=== PATIENT | female | born 1985 | race Caucasian/White ===

== ENCOUNTER 2016-07-27 15:36 | Emergency (ER) | payer BC, OTHER ==
[~2016-07-27] VITALS: Ht 175.3 cm; Wt 112.2 kg
[~2016-07-27 15:36] MED LIST: DOXY-300 PO
[2016-07-27 15:43] VITALS: TEMP 36.8; Ht 175.3 cm; Wt 112.2 kg
[2016-07-27] MEDS ORDERED: SODIUM CHLORIDE 0.9% 1000ML 1,000 ML IV STA (16:27)
[2016-07-27] MEDS ORDERED: LORAZEPAM 2 MG/ML 1 ML VIAL IV STA (16:27)
[2016-07-27 17:05] LABS: URINE APPEARANCE CLEAR (CLEAR); URINE BILIRUBIN NEG (NEG); URINE COLOR YELLOW; URINE NITRITE NEG (NEG); URINE SPECIFIC GRAVITY 1.025 (1.000-1.030); UROBILINOGEN NEG (NEG)
[2016-07-27 17:08] LABS: MANUAL MICROSCOPIC REQUIRED? NO; REVIEW REQ? NO
[2016-07-27 17:09] LABS: BASO % 0.1 %; BASO ABS # 0.01 K/uL (0-0.2); COMPLETE YES; EOS % 0.8 %; HEMATOCRIT 39.9 % (37-47); IG% 0.1 %; LYMPH % 24.9 %; LYMPH ABS # 1.79 K/uL (1.2-3.4); MEAN CELL VOLUME 90.3 fL (80-100); MEAN CORPUSCULAR HGB CONC 34.3 g/dl (32-36); MEAN PLATELET VOLUME 9.8 fL (7.4-10.4); MONO % 6.1 %; PLATELET COUNT 237 K/uL (130-400); RED BLOOD COUNT 4.42 M/uL (4.2-5.4); WHITE BLOOD COUNT 7.19 K/uL (4.8-10.8)
[2016-07-27 17:26] LABS: CALCIUM 8.9 mg/dl (8.5-10.1); CREATININE 0.84 mg/dl (0.60-1.20); POTASSIUM 3.7 mmol/L (3.5-5.1)
[2016-07-27 17:30] LABS: CKMB/CK RATIO 0.7 (0-3.0)
[2016-07-27 18:15] VITALS: BP 139/95; PULSE 70; O2SAT 98
--- NOTE | 2016-07-28 00:06 | EMERGENCY ROOM VISIT NOTE ---
ED Visit Note First contact with patient: 16:02 Chief Complaint: I was shocked with an electrical outlet. History of Present Illness: Ms. Wright is a 31-year-old white female who is brought into the ED via wheelchair with complaints in the shocked when she was plugging a soup warmer into an outlet approximately 8 hours ago. The initial contact was on her left hand. Patient reports at the time of the incident she was stunned but had no loss of consciousness and throughout the day at work she reports she's been having difficulty concentrating on work, sensations when she moves her eyes her vision is lagging, disperse muscle numbness sensations predominantly in the upper extremities but throughout the body and intermittent facial flushing. Currently she has no additional symptoms and denies any ale pain. She has not taken any medications for her symptoms. She has not identified any aggravating or alleviating factors related to the pain. She denies headaches, dizziness, lightheadedness, hearing changes, difficulty speaking, difficulty swallowing, difficulty ambulating/coordinating body movements, chest pain, palpitations, shortness of breath, abdominal pain, nausea , vomiting, extremity weakness, back/flank pain Review of Systems: As noted above in history of present illness. All body systems were reviewed and found to be negative as noted above. Past Medical History: Unspecified stomach disorder, gallbladder disease, urinary symptoms, unspecified oral surgery. Current Medications: Patient denies. Allergies to Medications: Patient denies. Social History: Patient is currently employed; she feels safe in her home environment; she admits to tobacco and alcohol use. Physical Examination: Vital Signs: Date Time Temp Pulse Resp B/P Pulse Ox O2 Delivery O2 Flow Rate FiO2 07/27/16 18:15 70 18 139/95 98 07/27/16 16:34 82 07/27/16 15:43 36.8 80 16 146/101 100 GENERAL: 31-year-old female in no acute physical distress, nontoxic-appearing, afebrile and hemodynamically stable. Patient does appear slightly anxious. NEUROLOGICAL: Awake, alert and oriented to person, place and time. Answering questions appropriately and following commands. Normal gait. Good hand eye coordination. No focal motor sensory deficits. Cranial nerves II through XII grossly intact. Good short-term and long-term recall. Able to spell backwards. Able to draw the face of a clock. Romberg test negative. Pronator drift test negative. SKIN: Warm, dry and pink. No soft tissue eruptions or trauma noted. HEENT: Atraumatic and normocephalic. PERRLA. EOMI without nystagmus. Sclera white and conjunctiva pink. No drainage from naris. Oral cavity moist and pink. Pharynx is nonerythematous or edematous. Speech normal. No lymphadenopathy. Trachea midline. No jugular venous distention. No carotid bruits. BACK: No tenderness over the bony spine. No CVA tenderness. THORAX: Lungs sounds are clear to auscultation and equal bilaterally with symmetrical chest wall. No wheezing, rales or rhonchi. No crepitus, tenderness , subcutaneous air or deformities noted. HEART: Regular rate and rhythm. No gallops, rubs or murmurs are appreciated. ABDOMEN: Flat, soft and nontender. Positive bowel sounds in all quadrants. No guarding, rigidity or organomegaly. EXTREMITIES: Moves all extremities well on command and with purpose. All distal neurovascular statuses are intact and equal bilaterally. No calf tenderness or cords. 5/5 muscle strength in all movements of the upper extremity joints. ED Course: Patient is assessed as noted above. Laboratory Testing: Test 07/27/16 16:47 07/27/16 16:50 Range/Units Urine Color YELLOW Urine Appearance CLEAR CLEAR Urine pH 5.0 4.5-7.5 Urine Specific Murray 1.025 1.000-1.030 Urine Protein NEG NEG Urine Glucose (UA) NEG NEG Urine Ketones NEG NEG Urine Occult Blood NEG NEG Urine Nitrite NEG NEG Urine Bilirubin NEG NEG Urine Urobilinogen NEG NEG Urine Leukocyte Esterase NEG NEG White Blood Count 7.19 4.8-10.8 K/uL Red Blood Count 4.42 4.2-5.4 M/uL Hemoglobin 13.7 12.0-16.0 g/dL Hematocrit 39.9 37-47 % Mean Corpuscular Volume 90.3 80-100 fL Mean Corpuscular Hemoglobin 31.0 25-34 pg Mean Corpuscular Hemoglobin Concent 34.3 32-36 g/dl Platelet Count 237 130-400 K/uL Mean Platelet Volume 9.8 7.4-10.4 fL Neutrophils (%) (Auto) 68.0 % Lymphocytes (%) (Auto) 24.9 % Monocytes (%) (Auto) 6.1 % Eosinophils (%) (Auto) 0.8 % Basophils (%) (Auto) 0.1 % Neutrophils # (Auto) 4.88 1.4-6.5 K/uL Lymphocytes # (Auto) 1.79 1.2-3.4 K/uL Monocytes # (Auto) 0.44 0.11-0.59 K/uL Eosinophils # (Auto) 0.06 0-0.5 K/uL Basophils # (Auto) 0.01 0-0.2 K/uL RDW Standard Deviation 42.9 36.4-46.3 fL RDW Coefficient of Variation 13.1 11.5-14.5 % Immature Granulocyte % (Auto) 0.1 % Immature Granulocyte # (Auto) 0.01 0.00-0.02 K/uL Sodium Level 140 136-145 mmol/L Potassium Level 3.7 3.5-5.1 mmol/L Chloride Level 106 98-107 mmol/L Carbon Dioxide Level 27 21-32 mmol/L Anion Gap 7.0 3-11 mmol/L Blood Urea Nitrogen 14 7-18 mg/dl Creatinine 0.84 0.60-1.20 mg/dl Est Creatinine Clear Calc Drug Dose 129.6 ml/min Estimated GFR () 107.3 Estimated GFR (Non- 92.6 BUN/Creatinine Ratio 17.0 10-20 Random Glucose 99 70-99 mg/dl Calcium Level 8.9 8.5-10.1 mg/dl Total Creatine Kinase 124 26-192 U/L Creatine Kinase MB 0.9 0.5-3.6 ng/ml Creatine Kinase MB Ratio 0.7 0-3.0 EKG: Was read by myself and reviewed with Dr. Garcia; shows normal sinus rhythm with ventricular rate of 82 bpm. Low-voltage criteria. No axial deviation. Normal-appearing complexes and intervals. No ST changes indicating ischemia, injury or infarction. Patient was hydrated with normal saline and received 0.5 mg of Ativan IV for anxiety. Patient was reassessed multiple times during her stay in the emergency department. Patient's case was reviewed with Dr. Garcia; we agreed on diagnostic approach, treatment, disposition and plan. Patient was educated about tonight's findings and instructed on her treatment plan; she verbalizes understanding and agreement with this plan. Clinical Impression: Electrical shock. Disposition: Patient discharged home in stable condition; prior to departure she was reassessed and subjectively reported she was feeling better and had no additional symptoms. Plan: Patient was encouraged to use ibuprofen or acetaminophen as needed for mild aches or pains. Patient was encouraged to stay well-hydrated with increased clear fluids. Patient was encouraged to follow-up with Workmen's Compensation as needed for recheck. Patient was encouraged return the ED for severe pain, chest discomfort, heart racing, shortness of breath or any new/concerning symptoms.
== END 2016-07-27 18:16 | disposition home or self-care (01) ==
LOC: C.EDB 15:36 → C.EDA 18:16
DX: T75.4XXA Electrocution, initial encounter (principal); W86.8XXA Exposure to other electric current, initial encounter; F17.200 Nicotine dependence, unspecified, uncomplicated

== ENCOUNTER 2018-08-09 14:25 | Inpatient (IN) ==
[2018-08-09] MEDS ORDERED: MULTI-VITAMIN INFUSION 10 ML, THIAMINE HCL 100 MG, FOLIC ACID 1 MG in SODIUM CHLORIDE 0... IV STA (15:29)
[2018-08-09 15:35] LABS: Basophils # (auto) 0.01 K/uL (0-0.2); Basophils % (auto) 0.2 %; Eosinophils # (auto) 0.03 K/uL (0-0.5); Eosinophils % (auto) 0.5 %; Hematocrit (blood only) 38.9 % (37-47); Hemoglobin 13.3 g/dL (12.0-16.0); Immature Granulocytes # (auto) 0.01 K/uL (0.00-0.02); Immature Granulocytes % (auto) 0.2 %; Lymphocytes # (auto) 1.56 K/uL (1.2-3.4); Lymphocytes % (auto) 24.6 %; Mean Corpuscular Hgb Conc 34.2 g/dL (32-36); Mean Corpuscular Volume 98.2 fL (80-100); Mean Platelet Volume 9.1 fL (7.4-10.4); Monocytes # (auto) 0.25 K/uL (0.11-0.59); Monocytes % (auto) 3.9 %; Neutrophils # (auto) 4.48 K/uL (1.4-6.5); Neutrophils % (auto) 70.6 %; Platelet Count 200 K/uL (130-400); RDW Coefficient of Variation 14.1 % (11.5-14.5); RDW Standard Deviation 50.7 fL (36.4-46.3); Red Blood Count 3.96 M/uL (4.2-5.4); White Blood Count 6.34 K/uL (4.8-10.8)
[2018-08-09 15:38] LABS: Amphetamines+Metham, Urine Neg (Neg); Barbiturates, Urine Neg (Neg); Benzodiazepine, Urine Neg (Neg); Cocaine, Urine Neg (Neg); MDMA (Ecstacy), Urine Neg (Neg); Methadone, Urine Neg (Neg); Opiate, Urine Neg (Neg); Phencyclidine, Urine Neg (Neg)
[2018-08-09 15:55] LABS: Albumin Level 3.6 gm/dl (3.4-5.0); BUN Creatinine Ratio 16.6 (10-20); Calcium 8.2 mg/dl (8.5-10.1); Creatinine Clr Calc Pharmacy 133.6 ml/min; Est GFR (African American) 131.9; Est GFR (Non-African American) 113.8; Potassium 3.7 mmol/L (3.5-5.1)
[2018-08-09 16:06] LABS: Bilirubin,Total 0.6 mg/dl (0.2-1); Globulin 3.5 gm/dl (2.5-4.0); Total Protein 7.1 gm/dl (6.4-8.2)
[2018-08-09 16:11] LABS: Salicylate 2.6 mg/dl (2.8-20)
[2018-08-09 16:14] LABS: Acetaminophen < 2 ug/ml (10-30)
--- NOTE | 2018-08-09 16:39 | Emergency Department Note ---
Entered by Nathan Ye acting as a scribe for Houston Nguyen MD History of Present Illness General Chief complaint: Mental Health Evaluation Stated complaint: ANXIOUS, DEPRESSED Source: patient History of Present Illness Provider complaint: Wants detox Onset (ago): month(s) Location: left and right Maximum Pain Intensity: 0 Relieved By: + none Associated symptoms: + denies other symptoms (Suicidal ideations); no fever/chills and no nausea/vomiting Treatments prior to arrival: none The patient is a 33 year old female with a history of anxiety and depression who presents to the Emergency Room for alcohol detox/rehab. The patient states that she has been "self-medicating" with alcohol over the past 3-6 months adding that she drinks every day. She reports not currently being on any medications for her anxiety/depression. The patient notes that her last drink was approximately 12 hours ago. She adds that there is nothing in particular in her life that is making her depressed. She states that today she is seeking detox and eventual rehab treatment. The patient reports that she has never gone through detox before. She adds that she has never had a seizure before. She has had withdrawal symptoms in the past. The patient denies fevers, vomiting, and suicidal ideations. She also denies the chance of being . She also has a history of a past suicidal attempt (taking a full bottle of Benadryl) when she was much younger. She talked to her doctor who sent her here for detox. Home Medications Home Medications Medication Instructions Recorded Confirmed Type No Known Home Medications 08/09/18 08/09/18 History Allergies Allergy/AdvReac Type Severity Reaction Status Date / Time No Known Allergies Allergy Verified 08/09/18 15:24 Past Med/Surg History Medical History Anxiety Depression Suicide attempt Social History Preferred Language: Uruguayan Feels Safe at Home: Yes Smoking Status: Current every day smoker Review of Systems See HPI for pertinent positives & negatives. and A total of 10 systems reviewed and were otherwise negative Physical Exam Vital Signs Vital Signs - 24 hr 08/09/18 14:31 08/09/18 17:03 Temperature 36.8 C Temperature Source Oral Sepsis Recent Fever Within 48 Hours No Sepsis Action Taken by Nursing No Action Required Pulse Rate 98 H Pulse Rate [Right Finger] 72 Respiratory Rate 20 22 Respiratory Effort / Characteristics Spontaneous Blood Pressure 155/101 H Blood Pressure [Left Arm] 148/91 H Blood Pressure Mean 119 Blood Pressure Mean [Left Arm] 110 Blood Pressure Position [Left Arm] Sitting Pulse Oximetry 100 98 Oxygen Delivery Method Room Air Room Air Constitutional: Vital signs reviewed. Eyes: Pupils are equal round reactive to light. Conjunctiva are noninjected. ENT: Pharynx is clear without erythema or exudate. Mucous membranes are moist. Neck supple without meningeal signs. Respiratory: Clear to auscultation bilaterally. Breath sounds are equal bilaterally. Cardiovascular: Regular rate and rhythm. No rubs or gallops. GI: Soft, nondistended and nontender. Bowel sounds are present. Musculoskeletal: No peripheral edema. No lacerations to the wrists. Integumentary: No cyanosis. or jaundice. Neurological: The patient is awake and alert. No focal deficits. Mild tremor in the right hand. Psychiatric: Slightly anxious appearing. Course 1501: The patient was evaluated in room A08, and a complete history and physical examination were performed. 1602: I discussed test results with the patient and mom. She declines any medications. She made this decision because she wants to feel it. Consultations Consultation #1: [facility] Col[facility] Time: 18:24 Administered Medications Discontinued Medications Chlordiazepoxide HCl (Librium) 25 mg PO NOW ONE Stop: 08/09/18 17:51 Last Admin: 08/09/18 17:55 Dose: 25 mg Documented by: [id number] Multivitamins 10 ml/ Thiamine HCl 100 mg/ Folic Acid 1 mg/Sodium Chloride 1,011.2 mls @ 1,011.2 mls/hr IV .Q1H STA Stop: 08/09/18 16:28 Last Infusion: 08/09/18 16:55 Dose: 0 mls/hr Documented by: [id number] Admin: 08/09/18 15:55 Dose: 1,011.2 mls/hr Documented by: [id number] Medical Decision Making Differential Diagnosis Differential Diagnosis: Alcohol dependence, alcohol intoxication, alcohol withdrawal, substance abuse, mood disorder Medical Records Attestation: I reviewed the patient's medical records. The patient has had no recent pertinent visits. Home Medications Current Medication List: was personally reviewed by me Laboratory Data Result diagrams: 08/09/18 15:17 08/09/18 15:17 Lab Results 08/09/18 08/09/18 08/09/18 Range/Units 14:42 15:17 15:17 WBC 6.34 (4.8-10.8) K/uL RBC 3.96 L (4.2-5.4) M/uL Hgb 13.3 (12.0-16.0) g/dL Hct 38.9 (37-47) % MCV 98.2 (80-100) fL MCH 33.6 (25-34) pg MCHC 34.2 (32-36) g/dL RDW Std Deviation 50.7 H (36.4-46.3) fL RDW Coeff of Kirsten 14.1 (11.5-14.5) % Plt Count 200 (130-400) K/uL MPV 9.1 (7.4-10.4) fL Immature Gran % (Auto) 0.2 % Neut % (Auto) 70.6 % Lymph % (Auto) 24.6 % Eagle % (Auto) 3.9 % Eos % (Auto) 0.5 % Baso % (Auto) 0.2 % Immature Gran # (Auto) 0.01 (0.00-0.02) K/uL Neut # (Auto) 4.48 (1.4-6.5) K/uL Lymph # (Auto) 1.56 (1.2-3.4) K/uL Eagle # (Auto) 0.25 (0.11-0.59) K/uL Eos # (Auto) 0.03 (0-0.5) K/uL Baso # (Auto) 0.01 (0-0.2) K/uL Sodium 141 (136-145) mmol/L Potassium 3.7 (3.5-5.1) mmol/L Chloride 107 (98-107) mmol/L Carbon Dioxide 28 (21-32) mmol/L Anion Gap 6.0 (3-11) BUN 12 (7-18) mg/dl Creatinine 0.70 (0.6-1.2) mg/dl Est Cr Clr Drug Dosing 133.6 ml/min Est GFR ( Amer) 131.9 Est GFR (Non-Af Amer) 113.8 BUN/Creatinine Ratio 16.6 (10-20) Glucose 92 (70-99) mg/dl Calcium 8.2 L (8.5-10.1) mg/dl Total Bilirubin 0.6 (0.2-1) mg/dl AST 37 (15-37) U/L ALT 37 (12-78) U/L Alkaline Phosphatase 70 (45-117) U/L Total Protein 7.1 (6.4-8.2) gm/dl Albumin 3.6 (3.4-5.0) gm/dl Globulin 3.5 (2.5-4.0) gm/dl Albumin/Globulin Ratio 1.0 (0.9-2) Lipase (73-393) U/L TSH 2.800 (0.300-4.500) uIu/ml Salicylates (2.8-20) mg/dl Urine Opiates Screen Neg (Neg) Ur Methadone, Qual Neg (Neg) Acetaminophen (10-30) ug/ml Urine Barbiturates Neg (Neg) Ur Phencyclidine (PCP) Neg (Neg) U Amphetamin/Meth Scrn Neg (Neg) MDMA (Ecstasy) Screen Neg (Neg) U Benzodiazepines Scrn Neg (Neg) Ur Cocaine Metabolite Neg (Neg) U Marijuana (THC) Screen Neg (Neg) Ethyl Alcohol mg/dL (0-3) mg/dl 08/09/18 08/09/18 08/09/18 Range/Units 15:17 15:17 15:17 WBC (4.8-10.8) K/uL RBC (4.2-5.4) M/uL Hgb (12.0-16.0) g/dL Hct (37-47) % MCV (80-100) fL MCH (25-34) pg MCHC (32-36) g/dL RDW Std Deviation (36.4-46.3) fL RDW Coeff of Kirsten (11.5-14.5) % Plt Count (130-400) K/uL MPV (7.4-10.4) fL Immature Gran % (Auto) % Neut % (Auto) % Lymph % (Auto) % Eagle % (Auto) % Eos % (Auto) % Baso % (Auto) % Immature Gran # (Auto) (0.00-0.02) K/uL Neut # (Auto) (1.4-6.5) K/uL Lymph # (Auto) (1.2-3.4) K/uL Eagle # (Auto) (0.11-0.59) K/uL Eos # (Auto) (0-0.5) K/uL Baso # (Auto) (0-0.2) K/uL Sodium (136-145) mmol/L Potassium (3.5-5.1) mmol/L Chloride (98-107) mmol/L Carbon Dioxide (21-32) mmol/L Anion Gap (3-11) BUN (7-18) mg/dl Creatinine (0.6-1.2) mg/dl Est Cr Clr Drug Dosing ml/min Est GFR ( Amer) Est GFR (Non-Af Amer) BUN/Creatinine Ratio (10-20) Glucose (70-99) mg/dl Calcium (8.5-10.1) mg/dl Total Bilirubin (0.2-1) mg/dl AST (15-37) U/L ALT (12-78) U/L Alkaline Phosphatase (45-117) U/L Total Protein (6.4-8.2) gm/dl Albumin (3.4-5.0) gm/dl Globulin (2.5-4.0) gm/dl Albumin/Globulin Ratio (0.9-2) Lipase 79 (73-393) U/L TSH (0.300-4.500) uIu/ml Salicylates 2.6 L (2.8-20) mg/dl Urine Opiates Screen (Neg) Ur Methadone, Qual (Neg) Acetaminophen < 2 L (10-30) ug/ml Urine Barbiturates (Neg) Ur Phencyclidine (PCP) (Neg) U Amphetamin/Meth Scrn (Neg) MDMA (Ecstasy) Screen (Neg) U Benzodiazepines Scrn (Neg) Ur Cocaine Metabolite (Neg) U Marijuana (THC) Screen (Neg) Ethyl Alcohol mg/dL 194.0 H (0-3) mg/dl Blood Pressure Blood Pressure Findings: Elevated blood pressure Blood Pressure Disposition: Referred to patients primary care provider SANJUANITA Narrative I did evaluate the patient as noted above. The patient is presenting for alcohol detox/rehab. She has depression but denies any suicidality. IV access was established. I did treat her with a banana bag IV. I did order and review the patient's blood work as noted in the electronic medical record. LFTs are unremarkable. Serum alcohol is 194. I did discuss the test results with the patient and her mother. I did offer her something but she declined it. The mental health rifle case repairer did evaluate the patient. A detox/rehab facility was located that would accept her but the patient declined stating that she only wanted detox as she would otherwise lose her job in a 30-day program. I did reassess the patient later. She is increasingly anxious and tearful. She is afraid of being sent home. Her parents are both here and requesting that she be admitted to the hospital. The mother now states that the patient had spoken to her earlier today and stated that she had suicidal thoughts. The patient admits that she was not completely open about her suicidal ideation. She states that she was having suicidal thoughts earlier today but did not have any specific plan. She also now states that if she goes home "this will end badly." According to the psychiatric rifle case repairer there are no dual diagnosis facilities with available beds. Because of this I felt that was in her best interest to be hospitalized here for alcohol detox and have her psychiatric issues. I did discuss the case with the hospitalist. Impression & Plan Alcohol dependence, Mood disorder, Suicidal ideation Discharge Plan Visit Data Chief Complaint: Mental Health Evaluation Stated Complaint: ANXIOUS, DEPRESSED ED Provider: Houston Nguyen Discharge Problem: Alcohol dependence, Mood disorder, Suicidal ideation Forms Stand Alone Forms: My [facility] Prescriptions Prescriptions: No Action No Known Home Medications RF: 0 Discharge Problem: Alcohol dependence Qualifiers: Substance use status: in withdrawal Complication of substance-induced condition: uncomplicated Qualified Code(s): F10.230 - Alcohol dependence with withdrawal, uncomplicated The scribe's documentation has been prepared under my direction and personally reviewed by me in its entirety. I confirm that the note above accurately reflects all work, treatment, procedures, and medical decision making performed by me.
[2018-08-09] MEDS ORDERED: chlordiazePOXIDE HCl 25 MG CAP PO ONE (17:50)
[2018-08-09] MEDS ORDERED: ACETAMINOPHEN 325 MG TAB PO PRN (19:57)
[2018-08-09] MEDS ORDERED: LORazepam 1 MG TAB PO PRN (19:57)
--- NOTE | 2018-08-09 20:19 | History & Physical Report ---
Date of Service August 09, 2018 Assessment & Plan (1) Alcohol withdrawal: Admitted for alcohol withdrawal. No history of seizures or DTs. On interview, patient was very anxious and agitated, but had normal vital signs. - ARLENE protocol with PRN Ativan - Thiamine & folate daily - Monitor electrolytes (2) Alcohol abuse: Wide drinking range from 1 drink to an entire bottle (750mL) of vodka per patient. - CM to provide rehab options (3) Depression: Prior suicide attempt 10+ years ago. Patient reports passing "suicidal thoughts," but denies any plan or intent; more of a passive wish. - Psychiatry evaluation - Given her lack of suicidal intent and her report to me that she was not currently suicidal, I do not feel she needs 1:1; however, low threshold if she expresses any additional ideation. (4) DVT prophylaxis: SCDs - Low risk per calculator History of Present Illness Primary Care Provider: NO PCP 33yo F w/ hx of depression who presents with alcohol withdrawal and possible suicidal ideation. Per the patient, she has been drinking between 1 drink and 1 bottle of vodka per day for the last 6 months, with the higher end being more recently. This is a mechanism to cope with her depression. She reports passing suicidal thoughts, but no plan. She has never drank this much consistently, and she has never had more than anxiety and tremors with her withdrawals. At present, she reports anxiety. She is also nauseated from the Librium she was given in the ED. Allergies Allergy/AdvReac Type Severity Reaction Status Date / Time No Known Allergies Allergy Verified 08/09/18 15:24 Home Medications Home Medications Medication Instructions Recorded Confirmed Type No Known Home Medications 08/09/18 08/09/18 History Past Med/Surg History Medical History Alcohol abuse Anxiety Depression Suicide attempt Social History Preferred Language: Palau[place] Feels Safe at Home: Yes Smoking Status: Current every day smoker Review of Systems Constitutional: no fever, no chills and no sweats Eyes: no diplopia Ear, Nose, Mouth, Throat: no ear trauma, no nasal discharge and no dental pain Respiratory: no cough, no chest congestion and no dyspnea Cardiovascular: no chest pain, no dyspnea on exertion, no palpitations and no syncope Gastrointestinal: no abdominal pain, no belching, no constipation, no diarrhea/loose stools, no blood in stools and no melena Musculoskeletal: no back pain, no joint pain and no muscle weakness Integumentary: no rash, no skin ulcer and no erythema Neurologic: no generalized weakness, no loss of sensation, no numbness and no paresthesia Psychiatric: + irritability, + suicidal ideation (Possible. Reports passing thoughts, but no plan. ) and + anxiety; no depression Endocrine: no fatigue, no polydipsia and no polyphagia Physical Exam Vital Signs (Past 24 Hours): Last Vital Signs Temp 36.8 C 08/09/18 14:31 Pulse 89 08/09/18 19:49 Resp 16 08/09/18 19:49 BP 132/89 08/09/18 19:49 Pulse Ox 97 08/09/18 19:49 Constitutional: WD/WN, vitals as above + acute distress, + intoxicated appearing, + disheveled, cooperative and + diaphoretic Eyes: EOM intact bilaterally; no conjunctival abnormality ENMT: external ear and nose normal, oropharynx normal Neck: trachea midline, no thyromegaly normal visual inspection Respiratory: normal respiratory effort, lungs clear to auscultation no respiratory distress Cardiovascular: RRR, no murmur, no edema Gastrointestinal (Abdomen): Inspection/Auscultation: abdomen normal to inspection; abdomen not distended Musculoskeletal: no cyanosis or clubbing, extremities motor strength 5/5 Skin: no rashes, warm and dry Neurologic: moves all extremities and awake Psychiatric: Orientation: alert, oriented to person and cooperative Apperance: + disheveled Eye Contact: + fair eye contact Speech: + pressured speech and + loud speech Affect: + anxious affect Mood: + anxious mood Thought Process: + tangential thought process Thought Content: + preoccupation Suicidal Thoughts: denies suicidal plan and denies suicidal intent; + reports suicidal thoughts Hallucinations: no auditory hallucinations and no visual hallucinations
[2018-08-09] MEDS: SODIUM CHLORIDE 0.9% 1000ML 1,000 ML IV SCH (20:52)
[2018-08-09] MEDS: ONDANSETRON INJ 2 MG/ML 2 ML VIAL IV PRN (20:53)
[2018-08-10] MEDS: ONDANSETRON INJ 2 MG/ML 2 ML VIAL IV PRN ×2 (05:40→10:07)
[2018-08-10 07:05] LABS: Hemoglobin 12.3 g/dL (12.0-16.0); Mean Corpuscular Hgb Conc 34.2 g/dL (32-36); Mean Corpuscular Volume 97.3 fL (80-100); Mean Platelet Volume 9.2 fL (7.4-10.4); Platelet Count 140 K/uL (130-400); RDW Coefficient of Variation 13.9 % (11.5-14.5); RDW Standard Deviation 49.5 fL (36.4-46.3); White Blood Count 4.41 K/uL (4.8-10.8)
[2018-08-10 07:21] LABS: BUN Creatinine Ratio 13.9 (10-20); Calcium 8.1 mg/dl (8.5-10.1); Creatinine Clr Calc Pharmacy 136.7 ml/min; Est GFR (African American) 132.6; Est GFR (Non-African American) 114.4; Magnesium 1.7 mg/dl (1.8-2.4); Potassium 3.4 mmol/L (3.5-5.1)
--- NOTE | 2018-08-10 08:05 | Hospitalist Progress Note ---
Date of Service August 10, 2018 Assessment & Plan (1) Alcohol withdrawal: Admitted for alcohol withdrawal. No history of seizures or DTs. On intake, patient was very anxious and agitated, but had normal vital signs. -Librium 10 twice daily - Thiamine & folate daily We did start pepcid for gastritis (2) Alcohol abuse: Wide drinking range from 1 drink to an entire bottle (750mL) of vodka per patient. - rehab options from case management we did discuss Alcoholics Anonymous she is turned off by the jain aspect of this (3) Depression: Prior suicide attempt 10+ years ago. Patient reports passing "suicidal thoughts," but denies any plan or intent; more of a passive wish. She denies being suicidal at this time (4) DVT prophylaxis: SCDs - Low risk per calculator Subjective Patient was seen in the morning in the afternoon in the morning she was tremulous and had pressured speech she looked uncomfortable after a dose of Librium and some Zofran she is sleeping quietly but was easily awoken. She says she feels much better Review of Systems ROS: well nourished well developed. No double vision blurry vision No problems with speech or swallowing No palpitations, chest pain or pressure No Wheezing or breathing issues No abdominal pain nausea vomiting diarrhea changes in appetite or weight No burning urine urine frequency or changes in color No focal joint pain or muscle pain No skin rashes or oral lesions No unusual bruising or bleeding No focused back pain or numbness or loss of strength Tremulous and tearful Physical Exam Vital Signs (Past 24 Hours): Last Vital Signs Temp 36.5 C 08/10/18 08:02 Pulse 66 08/10/18 08:02 Resp 18 08/10/18 08:02 BP 139/86 08/10/18 08:02 Pulse Ox 97 08/10/18 08:02 The patient appeared anxious and agitated at times Vital signs as documented. Head exam is unremarkable. normocephalic, atraumatic Neck is without jugular venous distension, thyromegaly, or lymphademopathy Lungs are clear to auscultation and percussion. Cardiac exam reveals Rhythm is regular. First and second heart sounds normal. Abdominal exam reveals normal bowel sounds, no masses, no organomegaly Extremities are nonedematous and both pedal pulses are present Neurologic exam is A&Ox3, he is tremulous Psychologically seems anxious Skin is warm Dry without bruises or lesions
[2018-08-10] MEDS: THIAMINE HCL 100 MG TAB PO SCH (08:13)
[2018-08-10] MEDS: FOLIC ACID 1 MG TAB PO SCH (08:13)
[2018-08-10] MEDS: SODIUM CHLORIDE 0.9% 1000ML 1,000 ML IV SCH ×2 (08:20→20:43)
[2018-08-10] MEDS ORDERED: ONDANSETRON INJ 2 MG/ML 2 ML VIAL IV PRN (10:42)
[2018-08-10] MEDS ORDERED: FAMOTIDINE 20MG/5ML IV PUSH IV STA (10:43)
[2018-08-10] MEDS ORDERED: FAMOTIDINE 20 MG in SYRINGE 3 ML IV STA (10:49)
[2018-08-10] MEDS: GABAPENTIN 100 MG CAP PO SCH (11:50)
--- NOTE | 2018-08-10 12:31 | Psychiatric Consultation ---
Date of Consultation August 10, 2018 Impression / Recommendations Francisco Javier Cordova is a 33 yo female with worsening anxiety and depression in the context of ETOH dependence. She has had suicidal thoughts while intoxicated but denies any intent or plan to act on those thoughts. She is future focussed with regards to keeping her job at [employer] and entering an outpatient IOP program following medical clearance. She is declining rehab but should be encouraged to consider. There is no evidence of delirium/psychosis interfering with her medical decision making at this time. I would defer any antidepressant recommendations until after she completes acute detox on med floor and feel that anxiety could be controlled with the neurontin loading at the discretion of the medical team. She denies any access to weapons so no other specific safety concerns to address from a psych standpoint prior to discharge to appropriate level of ETOH rehab program. Psych History Chief Complaint "I'm having a hard time focussing". History of Present Illness presented to the ED for detox, reported passive SI. hx of suicide attempt 10+ years ago (age 19, OTC antihistamine), she was tried on Zoloft around that time and saw a therapist in the past who she felt violated HIPPA so resisted returning to therapy. she does feel that she is self-medicating with ETOH and is willing for an outpatient program. At baseline she drinks socially and not to point of passing out but 6 months ago a friend/roommate fell of a ladder. He drank heavily and was in trauma ICU for injuries. He has been sober and ironically she has been caring for him until recently and she now wants to focus on herself. Reported drinking up to a bottle (fifth) of vodka daily since that time. She does worry and her thoughts race so she will drink to pass out. She has a lot of shame around hiding her drinking from family and her friend. Motivation has been poor and feels like making more errors at work. She has been waking up with anxiety which is likely some degree of withdrawal. She denies plan or intent to harm herself but PHQ-9 20 and 2 on questions 9. She feels the passive wish creeps in when she is anxious. Allergies Allergy/AdvReac Type Severity Reaction Status Date / Time No Known Allergies Allergy Verified 08/09/18 15:24 Home Medications Home Medications Medication Instructions Recorded Confirmed Type No Known Home Medications 08/09/18 08/09/18 History Personal History Beliefs That Will Affect Care: None Patient History Medical History Alcohol abuse Anxiety Depression Suicide attempt Social History Preferred Language: Divehi Communication Ability: Effective Senior Java Architect Required: No Beliefs That Will Affect Care: None Current Living Situation: Parent Current Living Situation Comment: also has own apartment, staying w/ parents, "it's better for me" Other Information That Helps Us Care for You: No Feels Safe at Home: Yes Safety Concerns: Feels Safe At This Time Smoking Status: Current every day smoker Hx Alcohol Use: Yes Hx Substance Use: No Physical Exam Psychiatric Orientation: alert Apperance: appropriately groomed and appeared stated age Eye Contact: + fair eye contact Motor Behavior: no abnormal motor movements Speech: normal rate/rhythm/volume of speech Affect: + depressed affect and + tearful affect Mood: + depressed mood Thought Process: goal directed thought process Thought Content: no delusions Suicidal Thoughts: denies suicidal thoughts Homicidal Thoughts: denies homicidal thoughts Hallucinations: no auditory hallucinations and no visual hallucinations Cognition: remote memory grossly intact Estimated Intelligence: average estimated intelligence Insight: + fair insight Judgement: + fair judgement Vital Signs (Past 24 Hours) Last Vital Signs Temp 36.7 C 08/10/18 11:50 Pulse 56 L 08/10/18 11:50 Resp 18 08/10/18 11:50 BP 144/90 H 08/10/18 11:50 Pulse Ox 98 08/10/18 11:50 Review of Systems All systems reviewed & are unremarkable except as noted in HPI & below denies tremor, nauseated but going to try toast Results & Data Medications Administered Acetaminophen (Tylenol) 650 mg PO Q4H PRN PRN Reason: pain/fever Stop: 09/08/18 19:56 Last Admin: 08/10/18 08:19 Dose: 650 mg Documented by: [id number] Folic Acid (Folvite) 1 mg PO [facility] Stop: 09/09/18 08:59 Last Admin: 08/10/18 08:13 Dose: 1 mg Documented by: [id number] Gabapentin (Neurontin) 100 mg PO [facility] Stop: 09/09/18 10:44 Last Admin: 08/10/18 11:50 Dose: 100 mg Documented by: [id number] Sodium Chloride (Nss 1000ml) 1,000 mls @ 80 mls/hr IV .[id number] [facility] Stop: 09/08/18 19:56 Last Admin: 08/10/18 08:20 Dose: 80 mls/hr Documented by: [id number] Infusion: 08/10/18 08:20 Dose: 80 mls/hr Documented by: [id number] Admin: 08/09/18 20:52 Dose: 80 mls/hr Documented by: [id number] Ondansetron HCl (Zofran) 4 mg IV Q4H PRN PRN Reason: Nausea Stop: 09/08/18 20:37 Last Admin: 08/10/18 10:07 Dose: 4 mg Documented by: [id number] Admin: 08/10/18 05:40 Dose: 4 mg Documented by: [id number] Admin: 08/09/18 20:53 Dose: 4 mg Documented by: [id number] Thiamine HCl (Vitamin B-1) 100 mg PO QAM [facility] Stop: 09/09/18 08:59 Last Admin: 08/10/18 08:13 Dose: 100 mg Documented by: [id number]
[2018-08-11] MEDS: LORazepam 1 MG/2 ML VIAL IV PRN (04:45)
[2018-08-11] MEDS: GABAPENTIN 100 MG CAP PO SCH (08:31)
[2018-08-11] MEDS: FOLIC ACID 1 MG TAB PO SCH (08:31)
[2018-08-11] MEDS: THIAMINE HCL 100 MG TAB PO SCH (08:31)
[2018-08-11] MEDS: SODIUM CHLORIDE 0.9% 1000ML 1,000 ML IV SCH (08:32)
[2018-08-11] MEDS ORDERED: LORazepam 1 MG/2 ML VIAL IV PRN ×2 (13:13)
[2018-08-11] MEDS ORDERED: LORazepam 1 MG TAB PO PRN ×2 (13:13)
[2018-08-11] MEDS ORDERED: LORazepam 3 MG/6 ML VIAL IV PRN (13:13)
[2018-08-11] MEDS ORDERED: LORazepam 2 MG/4 ML VIAL IV PRN (13:13)
[2018-08-11] MEDS ORDERED: ATIVAN IV ALCOHOL WITHDRAWL IV SCH (13:15)
[2018-08-11] MEDS: MULTI-VITAMIN INFUSION 10 ML, THIAMINE HCL 100 MG, FOLIC ACID 1 MG in SODIUM CHLORIDE 0... IV SCH (13:55)
[2018-08-11 14:17] LABS: Albumin Level 3.1 gm/dl (3.4-5.0); Calcium 8.2 mg/dl (8.5-10.1); Creatinine Clr Calc Pharmacy 134.7 ml/min; Est GFR (African American) 131.9; Est GFR (Non-African American) 113.8; Magnesium 2.1 mg/dl (1.8-2.4); Potassium 3.5 mmol/L (3.5-5.1)
[2018-08-11 14:26] LABS: Bilirubin,Total 0.9 mg/dl (0.2-1); Globulin 3.2 gm/dl (2.5-4.0); Total Protein 6.3 gm/dl (6.4-8.2)
--- NOTE | 2018-08-11 15:55 | Hospitalist Progress Note ---
Date of Service August 11, 2018 Assessment & Plan (1) Alcohol withdrawal: 33-year-old white female admitted for alcohol withdrawal. Continue drinking for 3 months no history of seizures or DTs. Start [place] protocol, banana bag, x3, Ativan as needed, Continue Librium 10 twice daily Continue Pepcid for gastritis (2) Alcohol abuse: Wide drinking range from 1 drink to an entire bottle (750mL) of vodka per patient. per Document rehab options from case management we did discuss Alcoholics Anonymous, she is turned off Today patient will need to start with psychiatry, (3) Depression: Prior suicide attempt 10+ years ago. Patient reports passing "suicidal thoughts," but denies any plan or intent; more of a passive wish. denies being suicidal at this time (4) DVT prophylaxis: SCDs - Low risk per calculator, encourage increase activity and increased oral intake, Subjective Anxious and worried about alcohol withdrawal, she said her last drink was 3 days ago after 3 months of continual drinking every day No appetite, no bowel movement, Review of Systems Constitutional: negative weakness, or fatigue Respiratory: no cough, sputum, wheezing, or dyspnea on exertion Cardiac: No chest pain, No orthopnea, No PND, No claudication, No palpitations, Abdomen: mild nausea, No vomiting, No diarrhea, No constipation, No GI bleeding Musculoskeletal: No joint pain, No muscle pain, No swelling, No calf pain, No problem reported : No dysuria, No urinary frequency, No incontinence, No hematuria Neurologic: No paralysis, No weakness, No numbness/tingling, No vertigo, No balance problems Psychiatric: mild anxiety, denies suicidal or homicidal, Heme: No abnormal bleeding/bruising, No clotting problems, No swollen lymph nodes, No night sweats Skin: No rash, No itch, No new/changing skin lesions, No color change, No bleeding Physical Exam Vital Signs (Past 24 Hours): Last Vital Signs Temp 36.8 C 08/11/18 15:26 Pulse 64 08/11/18 15:26 Resp 16 08/11/18 15:26 BP 133/86 08/11/18 15:26 Pulse Ox 98 08/11/18 15:26 Physical Exam: General Appearance: WD/WN, no apparent distress, mildly anxious, Eyes: normal inspection, PERRL, EOMI, sclerae normal ENT: normal ENT inspection, hearing grossly normal, pharynx normal Neck: supple, no adenopathy, thyroid normal, no JVD, no carotid bruits, trachea midline Respiratory/Chest: chest non-tender, normal breath sounds, no respiratory distress, no accessory muscle use, breath sounds, rales, wheezing Cardiovascular: regular rate, rhythm, no JVD, no murmur Abdomen: normal bowel sounds, non tender, soft, no organomegaly, Extremities: normal range of motion, non-tender, normal inspection, no pedal edema, no calf tenderness, normal capillary refill, pelvis stable, joint has no limited range of motion, capillary refill is normal, no cyanosis clubbing Neurologic/Psychiatric: biomedical equipment tech II-XII nml as tested, no motor/sensory deficits, alert, oriented x 3 Skin: normal color, warm/dry, no rash Lymphatic: no adenopathy Results & Data Laboratory Results Laboratory Results - last 24 hr 08/11/18 08/11/18 13:38 13:38 Sodium 142 Potassium 3.5 Chloride 111 H Carbon Dioxide 25 Anion Gap 7.0 BUN 4 L D Creatinine 0.70 Est Cr Clr Drug Dosing 134.7 Est GFR ( Amer) 131.9 Est GFR (Non-Af Amer) 113.8 BUN/Creatinine Ratio 6.0 L Glucose 123 H Calcium 8.2 L Magnesium 2.1 Total Bilirubin 0.9 AST 64 H ALT 40 Alkaline Phosphatase 68 Total Protein 6.3 L Albumin 3.1 L Globulin 3.2 Albumin/Globulin Ratio 1.0 Folate > 24.00
[2018-08-12 06:39] LABS: BUN Creatinine Ratio 6.2 (10-20); Calcium 8.1 mg/dl (8.5-10.1); Creatinine Clr Calc Pharmacy 173.5 ml/min; Est GFR (African American) 143.7; Magnesium 1.9 mg/dl (1.8-2.4); Potassium 3.9 mmol/L (3.5-5.1)
[2018-08-12 06:42] LABS: Bilirubin,Total 0.7 mg/dl (0.2-1)
[2018-08-12] MEDS: GABAPENTIN 100 MG CAP PO SCH (08:02)
[2018-08-12] MEDS: LORazepam 1 MG/2 ML VIAL IV PRN (12:46)
[2018-08-12] MEDS: MULTI-VITAMIN INFUSION 10 ML, THIAMINE HCL 100 MG, FOLIC ACID 1 MG in SODIUM CHLORIDE 0... IV SCH (13:31)
--- NOTE | 2018-08-12 15:57 | Hospitalist Progress Note ---
Date of Service August 12, 2018 Assessment & Plan (1) Alcohol withdrawal: 33-year-old white female admitted for intoxication and possible going through alcohol withdrawal. Has been continue drinking for 3 months no history of seizures or DTs. Has Started CIWA protocol, banana bag, x3, Ativan as needed, Continue Librium 10 twice daily Continue Pepcid for gastritis Because patient not feel comfortable to be released to home, and will wait psychiatry more input, will continue current care Later psychiatry service gave me feedback recommended to continue keep her for 1 more day in medicine, and then reevaluation, I agreed Continue SIWA protocol as mentioned in the above (2) Alcohol abuse: Wide drinking range from 1 drink to an entire bottle (750mL) of vodka per patient. per Document rehab options from case management, did discuss Alcoholics Anonymous, she is turned off Today patient has been talk about "outpatient acute rehab" [facility] , which will be arranged by psychiatry service , patient will need re eval by psychiatry, (3) Depression: Prior suicide attempt 10+ years ago. Patient reports passing "suicidal thoughts," but denies any plan or intent; more of a passive wish. Per psychiatry service and they will hold anti-depression on other medicines before alcohol intoxication or withdwaral totally resolved (4) DVT prophylaxis: SCDs - Low risk per calculator, encourage increase activity and increased oral intake, Subjective Nursing staff report patient has been pleasant doing well, only need 1 dose of Ativan last night, When I walked in she was pleasant smiling conversational, reading newspaper, When I talking to her about discharge planning she seems scared and not feel comfortable to go home later RN report to me she was anxious and crying, and required 1 dose of Ativan, psychiatry service report to me patient was agitated and has some asencio icidal thoughts Physical Exam Vital Signs (Past 24 Hours): Last Vital Signs Temp 36.6 C 08/12/18 15:45 Pulse 64 08/12/18 15:45 Resp 15 08/12/18 15:45 BP 144/90 H 08/12/18 15:45 Pulse Ox 100 08/12/18 15:45 Physical Exam: General Appearance: WD/WN, no apparent distress, mildly anxious, Eyes: normal inspection, PERRL, EOMI, sclerae normal ENT: normal ENT inspection, hearing grossly normal, pharynx normal Neck: supple, no adenopathy, thyroid normal, no JVD, no carotid bruits, trachea midline Respiratory/Chest: chest non-tender, normal breath sounds, no respiratory distress, no accessory muscle use, breath sounds, rales, wheezing Cardiovascular: regular rate, rhythm, no JVD, no murmur Abdomen: normal bowel sounds, non tender, soft, no organomegaly, Extremities: normal range of motion, non-tender, normal inspection, no pedal edema, no calf tenderness, normal capillary refill, pelvis stable, joint has no limited range of motion, capillary refill is normal, no cyanosis clubbing Neurologic/Psychiatric: insurance counsel II-XII nml as tested, no motor/sensory deficits, alert, oriented x 3 Skin: normal color, warm/dry, no rash Lymphatic: no adenopathy Results & Data Laboratory Results Laboratory Results - last 24 hr 08/12/18 05:58 Sodium 144 Potassium 3.9 Chloride 112 H Carbon Dioxide 27 Anion Gap 4.0 BUN 3 L Creatinine 0.54 L Est Cr Clr Drug Dosing 173.5 Est GFR ( Amer) 143.7 Est GFR (Non-Af Amer) 124.0 BUN/Creatinine Ratio 6.2 L Glucose 105 H Calcium 8.1 L Magnesium 1.9 Total Bilirubin 0.7 AST 39 H ALT 33 Alkaline Phosphatase 55 Total Protein 6.0 L Albumin 3.0 L Globulin 3.0 Albumin/Globulin Ratio 1.0
[2018-08-13] MEDS: GABAPENTIN 100 MG CAP PO SCH (07:46)
[2018-08-13] MEDS: MULTI-VITAMIN INFUSION 10 ML, THIAMINE HCL 100 MG, FOLIC ACID 1 MG in SODIUM CHLORIDE 0... IV SCH (13:53)
--- NOTE | 2018-08-13 15:26 | Psychiatric Progress Note ---
Date of Service August 13, 2018 Impression / Recommendations Impression 33-year-old female admitted medically for alcohol detoxification on 08/09/18. Initial psychiatric consultation completed on 08/10/18, with primary recommendation for inpatient D&A rehabilitation. It remains this service's recommendation that the patient be referred for inpatient rehab, but she is unwilling. Discharge plan was reviewed with patient and father, in the presence of [employer] representative. We reviewed that she has PCP appointment and intake for [facility] at [place] scheduled for 08/18. Concerns for managing acute anxiety though the weekend were reviewed, and will provide patient with a trial of hydroxyzine. Given reported medication sensitivities, patient agreed to a dose of 10mg. This provider also gave permission to take 1/2 tab if she experienced sedation, and alternatively 2 tablets if the dose was not effective. Risks, benefits, and potential side effects of the medication were reviewed and patient and father denied any further questions. They were reminded that the formal discharge paperwork would address most of their present questions, and would provide a list of medications if applicable, dates of upcoming appointments, and contact information for resources should there be any concerns after discharge. Pt does not meet criteria for inpatient psychiatric treatment, as she is not voicing suicidality and is future oriented and motivated to address her alcohol abuse in treatment. Pt has the support of her parents who have agreed to assist patient as needed post-discharge. Pt is planning to go home with her father. Requesting from primary medical team, that hydroxyzine 10mg q4h prn be continued as discharge medication and be sent to pharmacy on discharge. Pt states she would feel most comfortable with a prn medication to manage anxiety until she is able to get to her appointments on Saturday. Dr. Fani Urena was directly involved in review and discussion of the patient's case and participated in medical decision making regarding treatment recommen dations. Case reviewed with psychiatric liaison nurse and [facility] excellence banking representative in order to effectively coordinate care and discharge planning. Interval History Identifying Information 33-year-old female admitted medically for alcohol detox. Seen initially on psychiatric consult service on 08/10/18. Initial consultation requested to assess for depression and possible suicidal ideation. Re-evaluation requested by patient/family to discuss discharge planning. Chief Complaint "I'm just really anxious. I'm proud of myself for being so young and asking for help so early, but I want this to be the last time I do this. I want to have a plan before I leave." Review of Systems Notes Constitutional: reports elevated anxiety Cardiovascular: denied Respiratory: denied Gastrointestinal: denied Neurological: denied Psychiatric: denies symptoms other than stated above Total of at least 10 systems reviewed, pertinent positives as above and in HPI. Subjective Subjective Patient case was reviewed with psychiatric liaison nurse periodically throughout the day. It was reported that patient was sent for discharge to home today, but that there was concern and anxiety voiced by the patient regarding her discharge planning. Re-assessment from our service was requested to review recommendations and discuss aftercare. Pt had been reminded of aftercare plans by psychiatric liaison nurse, and then again by this provider. Given concerns voiced by the parents, patient was seen by this provider in conjunction with a service excellence banking representative. Pt's father remained in the room as well, with patient's verbal permission. Pt appears anxious at mildly tearful upon this provider entering the room. She reports that she is motivated for treatment and wants to ensure that she does not return to her previous alcohol abuse - therefore, is highly concerned about there being a clear plan for discharge. Pt was requested to voice specific concerns, which were addressed by this provider. The majority of the patient's questions would have been addressed in formal discharge packet, which had not yet been printing as discharge was unsure. This was explained to the patient and her father - that all aftercare appointments as well as medication recommendations would be included in this packet for her to take home. Explanation of this was reportedly comforting, and did appear to ease some of the patient's tension. Another concern voiced by the patient and her father is strategy for managing anxiety until she goes to her follow-up appointments. We reviewed coping strategies, and this provider offered the patient a prn medication if desired to target acute anxiety. Specifically reviewed hydroxyzine, which patient was agreeable for. Pt specifically voiced anxiety regarding discharge planning, and once thoroughly reviewed, stated that she felt more comfortable. She does not voice any suicidality or homicidality and states multiple times that she is able to rely on her parents for support and feels safe returning home with her father on discharge. She states, "now that we have a plan, I'm good. I'm good to go." Pt and father were encouraged to reach out to the hospital with questions or concerns, and were reminded that contact information for IOP at [place] would be included in her discharge packet as well. Physical Exam Psychiatric Orientation: alert and oriented to person superficially cooperative Apperance: appropriately groomed, + disheveled and appeared stated age Eye Contact: + fair eye contact Motor Behavior: no abnormal motor movements (observed while sitting up in bed) Speech: + loud speech (alternating between irritable and anxious tones) and normal rate/rhythm/volume of speech Affect: + anxious affect and + tearful affect Mood: + anxious mood ("I'm just so anxious, I can't leave without a plan") Thought Process: goal directed thought process and clear/coherent thought process Thought Content: + preoccupation (with discharge planning, aftercare appointments) and reality based without delusions Suicidal Thoughts: denies suicidal thoughts, denies suicidal plan and denies suicidal intent Homicidal Thoughts: denies homicidal thoughts Hallucinations: no auditory hallucinations and no visual hallucinations Cognition: remote memory grossly intact, attention grossly intact and language grossly intact Estimated Intelligence: average estimated intelligence Insight: + fair insight Judgement: + fair judgement Vital Signs (Past 24 Hours) Last Vital Signs Temp 36.9 C 08/13/18 11:36 Pulse 67 08/13/18 11:36 Resp 16 08/13/18 11:36 BP 142/89 H 08/13/18 11:36 Pulse Ox 100 08/13/18 11:36 Results & Data Current Inpatient Medications Current Inpatient Medications: Current Inpatient Medications Acetaminophen (Tylenol) 650 mg PO Q4H PRN PRN Reason: pain/fever Stop: 09/08/18 19:56 Last Admin: 08/10/18 08:19 Dose: 650 mg Documented by: Chlordiazepoxide HCl (Librium) 10 mg PO BID [facility] Stop: 09/09/18 20:59 Last Admin: 08/13/18 07:46 Dose: 10 mg Documented by: Folic Acid (Folvite) 1 mg PO QAM [facility] Stop: 09/09/18 08:59 Last Admin: 08/11/18 08:31 Dose: 1 mg Documented by: Gabapentin (Neurontin) 100 mg PO QAM [facility] Stop: 09/09/18 10:44 Last Admin: 08/13/18 07:46 Dose: 100 mg Documented by: Lorazepam (Ativan) 1 mg in 2 mls @ 2 mls/min IV ONE PRN; Protocol PRN Reason: EtoH Withdrawal AWSS 6-10 Stop: 09/09/18 00:21 Last Admin: 08/12/18 12:46 Dose: 2 mls/min Documented by: Lorazepam (Ativan) 2 mg in 4 mls @ 4 mls/min IV UD PRN; Protocol PRN Reason: EtOH Withdrawl AWSS Score 8,9 Stop: 09/10/18 13:12 Lorazepam (Ativan) 3 mg in 6 mls @ 4 mls/min IV ONCE PRN; Protocol PRN Reason: EtOH Withdrawl AWSS Score >=10 Stop: 09/10/18 13:12 Lorazepam (Ativan) 1 mg in 2 mls @ 2 mls/min IV ONE PRN; Protocol PRN Reason: EtoH Withdrawal AWSS 6-10 Stop: 09/10/18 13:12 Lorazepam (Ativan) 1 mg in 2 mls @ 2 mls/min IV UD PRN; Protocol PRN Reason: EtOH Withdrawl AWSS Score 6,7 Stop: 09/10/18 13:12 Lorazepam (Ativan) 1 - 3 mg PO UD PRN; Protocol PRN Reason: EtoH Withdrawal AWSS 6-10+ Stop: 09/10/18 13:12 Ondansetron HCl (Zofran) 4 mg IV Q4H PRN PRN Reason: Nausea Stop: 09/08/18 20:37 Last Admin: 08/10/18 10:07 Dose: 4 mg Documented by: Ondansetron HCl (Zofran) 4 mg IV Q4H PRN PRN Reason: Nausea Stop: 09/09/18 10:41 Thiamine HCl (Vitamin B-1) 100 mg PO QAM [facility] Stop: 09/09/18 08:59 Last Admin: 08/11/18 08:31 Dose: 100 mg Documented by: CPT Code CPT Code 01158
[2018-08-13] MEDS ORDERED: hydrOXYzine HCl 10 MG TAB PO PRN (15:59)
--- NOTE | 2018-08-13 18:24 | Discharge Summary ---
Date of Service August 13, 2018 Admission HPI Per Admitting Provider presented to the ED for detox, reported passive SI. hx of suicide attempt 10+ years ago (age 19, OTC antihistamine), she was tried on Zoloft around that time and saw a therapist in the past who she felt violated HIPPA so resisted returning to therapy. she does feel that she is self-medicating with ETOH and is willing for an outpatient program. At baseline she drinks socially and not to point of passing out but 6 months ago a friend/roommate fell of a ladder. He drank heavily and was in trauma ICU for injuries. He has been sober and ironically she has been caring for him until recently and she now wants to focus on herself. Reported drinking up to a bottle (fifth) of vodka daily since that time. She does worry and her thoughts race so she will drink to pass out. She has a lot of shame around hiding her drinking from family and her friend. Motivation has been poor and feels like making more errors at work. She has been waking up with anxiety which is likely some degree of withdrawal. She denies plan or intent to harm herself but PHQ-9 20 and 2 on questions 9. She feels the passive wish creeps in when she is anxious. Principal Diagnosis Alcohol withdrawal Discharge Exam Constitutional WD/WN, vitals as above + acute distress, + intoxicated appearing, + disheveled, cooperative and + diaphoretic Eyes EOM intact bilaterally; no conjunctival abnormality ENMT external ear and nose normal, oropharynx normal Neck trachea midline, no thyromegaly normal visual inspection Respiratory normal respiratory effort, lungs clear to auscultation no respiratory distress Cardiovascular RRR, no murmur, no edema Gastrointestinal (Abdomen) Inspection/Auscultation: abdomen normal to inspection; abdomen not distended Musculoskeletal no cyanosis or clubbing, extremities motor strength 5/5 Skin no rashes, warm and dry Neurologic moves all extremities and awake Psychiatric Orientation: alert, oriented to person and cooperative Apperance: + disheveled Eye Contact: + fair eye contact Speech: + pressured speech and + loud speech Affect: + anxious affect Mood: + anxious mood Thought Process: + tangential thought process Thought Content: + preoccupation Suicidal Thoughts: denies suicidal plan and denies suicidal intent; + reports suicidal thoughts Hallucinations: no auditory hallucinations and no visual hallucinations Discharge Data Allergies Allergy/AdvReac Type Severity Reaction Status Date / Time No Known Allergies Allergy Verified 08/09/18 15:24 Consultations 08/09/18 19:57 Consult Psychiatry Routine Hospital Course (1) Alcohol withdrawal: 33-year-old white female admitted for alcohol withdrawal. Has been continue drinking for 3 months. - No signs of withdrawal with inpatient. - Seen by psychiatry and given outpatient resources. - Was on Librium until 08/13, then held. - Discharged on hydroxyzine for anxiety. (2) Alcohol abuse: Wide drinking range from 1 drink to an entire bottle (750mL) of vodka per patient. - Very mild alcoholic hepatitis, but AST/ALT had returned to normal by discharge. (3) Depression: Prior suicide attempt 10+ years ago. Patient reports passing "suicidal thoughts," but denies any plan or intent; more of a passive wish. - Per psychiatry service and they will hold anti-depression on other medicines before alcohol intoxication or withdwaral totally resolved (4) DVT prophylaxis: SCDs - Low risk per calculator, encourage increase activity and increased oral intake, Total Time Total Time Spent Total Time Spent (In Minutes): 45 Total Time Includes: Examination of the Patient, Discharge Planning and Medication Reconciliation Discharge Plan Discharge Items Patient Disposition: Home - Self-Care Reason For Visit: ALCOHOL WITHDRAWAL Discharge Diagnosis: Alcohol withdrawal Discharge Goals: Decrease discomfort, Prevent disease and Therapeutic intervention Activity: Resume your previous activity Non-emergency contact: Primary Care Provider Call non-emergency contact if: your symptoms worsen and your pain is not controlled Follow-up/Referrals: [facility] [Outside] (Saturdayaugust 18 at 3:30 pm with [facility] insurance information and photo ID) Artemio Kothari, DO [Primary Care Provider] - 08/18/18 9:20 am (Please follow up with Dr. Artemio Kothari on SaturdayAugust 18 at 9:20 am. *If you need to change this appointment, call the office at [phone]. ) PCP,NO [Physician] - Diet: Regular Addtl Provider Instructions: Ms. Wright, You were admitted for alcohol withdrawal and anxiety. We treated your alcohol withdrawal and it has improved. Your heart, lungs, kidneys, liver, and pancreas are all in good health and do not show any major issues from your alcohol consumption. You worked with our psychiatry team to help abstain from alcohol and treat your anxiety. Please follow up with rehab services and with a psychiatrist to help keep your anxiety under control and to help prevent any further drinking. Prescriptions: New hydroxyzine HCl 10 mg tablet 10 mg PO Q4H PRN (Reason: anxiety) Qty: 20 RF: 0 Stand-Alone Forms: [facility] Discharge Orders: Discharge Order (Routine); Ordered 08/13/18 Ordered By: Ag Kothari Admission Data Admit Date/Time: 08/11/18 19:17 Attending Provider: Ag Kothari Admit Provider: Ag Kothari Primary Care Provider: Artemio Kothari Other Providers: Fani Urena ; Ag Kothari Service: Medical Other Interventions: Discharge Summary Assessment (RN) Last Done: 08/13/18 17:29 DC Date/Time DO NOT enter until pt leaves facility: 08/13/18 17:56
== END 2018-08-13 17:56 | disposition home or self-care (01) | DRG 897 ==
LOC: 2N 14:25 → ED 14:25 → SUATTDRO 19:17 → 2N 19:49 → SUATTDRO 08-11 19:17